=== PATIENT | female | born 1940 | race Caucasian/White ===

== ENCOUNTER 2016-10-17 04:27 | Emergency (ER) | payer MEDICARE, OTHER ==
--- NOTE | 2016-10-17 05:12 | EDM.PDOC ---
ED HISTORY OF PRESENT ILLNESS - General Chief Complaint: Chest Pain Stated Complaint: FEELING ILL,UPPER ABDOMINAL DISCOMFORT Time Seen by Provider: 10/17/16 05:07 Source of Information: Reports: Patient History Limitations: Reports: No limitations - History of Present Illness INITIAL COMMENTS - FREE TEXT/NARRATIVE: HISTORY AND PHYSICAL: History of present illness: [76-year-old female with a history of asbestosis and elevated cholesterol with which he is noncompliant, no prior cardiac disease or workup, now presents to the emergency department complaining of back pain with cough. The patient states she awoke early this morning with painful cough similar to previous episodes of pneumonia. No nausea vomiting or sweating. Patient is at her baseline of shortness of air. She's never been a smoker has never had high blood pressure , never told she is diabetic. Patient denies any family history of coronary artery disease. She states she's had no recent cardiac workup including stress test or cardiac catheterization. 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 Patient is asymptomatic without cough. She denies pain or shortness of breath beyond her baseline She takes a medication for anxiety twice a day however she has not taken it yet today. no fevers chills sweats or shaking chills. Patient states she has been very active including strenuous vacuuming yesterday with no chest pain or shortness of breath beyond her baseline. Review of systems: As per history of present illness and below otherwise all systems reviewed and negative. Past medical history: As per history of present illness and as reviewed below otherwise noncontributory. Surgical history: As per history of present illness and as reviewed below otherwise noncontributory. Social history: No reported history of drug or alcohol abuse. Family history: As per history of present illness and as reviewed below otherwise noncontributory. Physical exam: HEENT: Atraumatic, normocephalic, pupils reactive, negative for conjunctival pallor or scleral icterus, mucous membranes moist, throat clear, neck supple, nontender, trachea midline. Lungs: Clear to auscultation, breath sounds equal bilaterally, chest nontender. No Bony or soft tissue tenderness. No crepitus or subcutaneous air. Heart: S1S2, regular, negative for clicks, rubs, or JVD. Abdomen: Soft, nondistended, nontender. Negative for masses or hepatosplenomegaly. Negative for costovertebral tenderness. Pelvis: Stable nontender. Genitourinary: Deferred. Rectal: Deferred. Extremities: Atraumatic, negative for cords or calf pain. Neurovascular unremarkable. Neuro: Awake, alert, oriented. Cranial nerves grossly unremarkable. Cerebellum unremarkable. Motor and sensory unremarkable throughout. Exam nonfocal. Diagnostics: [Chest x-ray cannot radiographically rule out early infiltrate rul EKG normal sinus rhythm at 93 occasional PVC and P SVC , no STEMI Therapeutics: zithromax Impression: Pneumonia, chest wall pain Plan: [Signs and symptoms consistent with chest pain possibly secondary to early pneumonia of which patient is suspicious. elderly patient with cardiac risk factors of age, high cholesterol only. Patient has had no recent cardiac workup., However presentation today not consistent with acute coronary syndrome. Patient wants to go home and is aware to followup with her primary care for reevaluation and also for referral for outpatient stress testing. She and her both agree with outpatient followup and will return immediately for new severe or worsening symptoms and strict return precautions given. Definitive disposition and diagnosis as appropriate pending reevaluation and review of above. - Related Data Allergies/ADRs: Allergies Allergy/AdvReac Type Severity Reaction Status Date / Time morphine Allergy Hives Verified 10/17/16 04:46 Home Meds: Home Meds Acetaminophen [Tylenol] 975 mg PO DAILY PRN 01/25/14 [History] LORazepam [Ativan] 0.5 mg PO BID PRN 01/25/14 [History] Montelukast [Singulair] 10 mg PO BEDTIME 01/25/14 [History] Vit D3/Folic Acid/B2/B6/B12 [Folgard Tablet] 400 units PO BID 01/25/14 [History] Acetaminophen [Tylenol Extra Strength] 1 tab PO BEDTIME 02/04/14 [History] Albuterol/Ipratropium [Combivent Respimat] 1 puff INH BID 02/04/14 [History] Ascorbic Acid [Vitamin C] 500 mg PO BID 02/04/14 [History] Fluticasone/Salmeterol [Advair 500-50] 1 puff IH BID 02/04/14 [History] Albuterol Sulfate [Proair Hfa] 1 - 2 puff INH ASDIRECTED PRN 10/17/16 [History] Azithromycin [Zithromax] 250 mg PO DAILY #6 tablet 10/17/16 [Rx] Dextromethorphan/guaiFENesin [Mucinex DM ER 600-30 MG] 1 tab PO BID PRN #20 tab.er 10/17/16 [Rx] Past Medical History HEENT History: Reports: Impaired vision Respiratory History: Reports: SOB, Other (see below) Other Respiratory History: 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 ruptured ovary Psychiatric History: Reports: Anxiety - Infectious Disease History Infectious Disease History: Reports: Chicken pox - Past Surgical History GI Surgical History: Reports: Appendectomy Female Surgical History: Reports: section, Hysterectomy Social & Family History - Family History Family Medical History: Noncontributory - Tobacco Use Smoking Status *Q: Former Smoker Years of Tobacco use: 42 Used Tobacco, but Quit: Yes Month Tobacco Last Used: 2000 Second Hand Smoke Exposure: No - Alcohol Use Days Per Week of Alcohol Use: 0 Number of Drinks Per Day: 0 Total Drinks Per Week: 0 - Recreational Drug Use Recreational Drug Use: No Drug Use in Last 12 Months: No ED ROS GENERAL - Review of Systems Review Of Systems: See Below (History of present illness) ED EXAM, GENERAL - Physical Exam Exam: See Below (History of present illness) Course - Vital Signs Last Recorded V/S: Last Vital Signs Temp 37.1 C 10/17/16 05:46 Pulse 67 10/17/16 05:46 Resp 18 10/17/16 05:46 BP 152/67 H 10/17/16 05:46 Pulse Ox 95 10/17/16 05:46 - Orders/Labs/Meds Orders: Active Orders 24 hr Category Date Time Status EKG Documentation Completion [RC] STAT Care 10/17/16 04:37 Active Chest 1V Frontal [CR] Stat Exams 10/17/16 04:38 Taken Labs: Laboratory Tests 10/17/16 10/17/16 10/17/16 Range/Units 04:40 04:40 04:40 WBC 9.77 (4.0-11.0) K/uL RBC 4.00 L (4.30-5.90) M/uL Hgb 13.3 (12.0-16.0) g/dL Hct 40.8 (36.0-46.0) % MCV 102.0 H (80.0-98.0) fL MCH 33.3 H (27.0-32.0) pg MCHC 32.6 (31.0-37.0) g/dL RDW Std Deviation 49.9 (28.0-62.0) fl RDW Coeff of Cornell 13 (11.0-15.0) % Plt Count 238 (150-400) K/uL MPV 10.20 (7.40-12.00) fL Neut % (Auto) 74.1 (48.0-80.0) % Lymph % (Auto) 15.6 L (16.0-40.0) % [place] % (Auto) 9.4 (0.0-15.0) % Eos % (Auto) 0.5 (0.0-7.0) % Baso % (Auto) 0.4 (0.0-1.5) % Neut # (Auto) 7.2 H (1.4-5.7) K/uL Lymph # (Auto) 1.5 (0.6-2.4) K/uL [place] # (Auto) 0.9 H (0.0-0.8) K/uL Eos # (Auto) 0.1 (0.0-0.7) K/uL Baso # (Auto) 0.0 (0.0-0.1) K/uL Nucleated RBC % 0.0 /100WBC Nucleated RBCs # 0 K/uL Sodium 139 (136-146) mmol/L Potassium 4.3 (3.5-5.1) mmol/L Chloride 104 (98-110) mmol/L Carbon Dioxide 24 (21-31) mmol/L BUN 15 (6.0-23.0) mg/dL Creatinine 0.8 (0.6-1.5) mg/dL Est Cr Clr Drug Dosing 42.97 mL/min Estimated GFR (MDRD) > 60.0 ml/min Glucose 118 H (60-110) mg/dL Calcium 9.9 (8.8-10.8) mg/dL Total Bilirubin 0.9 (0.1-1.5) mg/dL AST 20 (5-40) IU/L ALT 20 (8-54) IU/L Alkaline Phosphatase 74 (40-150) Creatine Kinase 73 (9-236) IU/L Troponin I < 0.10 (0.0-0.29) NG/ML Total Protein 7.0 (6.0-8.0) g/dL Albumin 3.7 (3.4-4.8) g/dL Globulin 3.3 (2.0-3.5) g/dL Albumin/Globulin Ratio 1.1 L (1.3-2.8) Urine Color Urine Appearance Urine pH (5.0-8.0) Ur Specific Ruth (1.001-1.035) Urine Protein (NEGATIVE) mg/dL Urine Glucose (UA) (NEGATIVE) mg/dL Urine Ketones (NEGATIVE) mg/dL Urine Occult Blood (NEGATIVE) Urine Nitrite (NEGATIVE) Urine Bilirubin (NEGATIVE) Urine Urobilinogen (<2.0) EU/dL Ur Leukocyte Esterase (NEGATIVE) Urine RBC (0-2/HPF) Urine WBC (0-5/HPF) Ur Epithelial Cells (NONE-FEW) Amorphous Sediment (NEGATIVE) Urine Bacteria (NEGATIVE) 10/17/16 Range/Units 05:10 WBC (4.0-11.0) K/uL RBC (4.30-5.90) M/uL Hgb (12.0-16.0) g/dL Hct (36.0-46.0) % MCV (80.0-98.0) fL MCH (27.0-32.0) pg MCHC (31.0-37.0) g/dL RDW Std Deviation (28.0-62.0) fl RDW Coeff of Cornell (11.0-15.0) % Plt Count (150-400) K/uL MPV (7.40-12.00) fL Neut % (Auto) (48.0-80.0) % Lymph % (Auto) (16.0-40.0) % [place] % (Auto) (0.0-15.0) % Eos % (Auto) (0.0-7.0) % Baso % (Auto) (0.0-1.5) % Neut # (Auto) (1.4-5.7) K/uL Lymph # (Auto) (0.6-2.4) K/uL [place] # (Auto) (0.0-0.8) K/uL Eos # (Auto) (0.0-0.7) K/uL Baso # (Auto) (0.0-0.1) K/uL Nucleated RBC % /100WBC Nucleated RBCs # K/uL Sodium (136-146) mmol/L Potassium (3.5-5.1) mmol/L Chloride (98-110) mmol/L Carbon Dioxide (21-31) mmol/L BUN (6.0-23.0) mg/dL Creatinine (0.6-1.5) mg/dL Est Cr Clr Drug Dosing mL/min Estimated GFR (MDRD) ml/min Glucose (60-110) mg/dL Calcium (8.8-10.8) mg/dL Total Bilirubin (0.1-1.5) mg/dL AST (5-40) IU/L ALT (8-54) IU/L Alkaline Phosphatase (40-150) Creatine Kinase (9-236) IU/L Troponin I (0.0-0.29) NG/ML Total Protein (6.0-8.0) g/dL Albumin (3.4-4.8) g/dL Globulin (2.0-3.5) g/dL Albumin/Globulin Ratio (1.3-2.8) Urine Color YELLOW Urine Appearance SLT CLOUDY Urine pH 7.5 (5.0-8.0) Ur Specific Ruth 1.010 (1.001-1.035) Urine Protein NEGATIVE (NEGATIVE) mg/dL Urine Glucose (UA) NEGATIVE (NEGATIVE) mg/dL Urine Ketones NEGATIVE (NEGATIVE) mg/dL Urine Occult Blood NEGATIVE (NEGATIVE) Urine Nitrite NEGATIVE (NEGATIVE) Urine Bilirubin NEGATIVE (NEGATIVE) Urine Urobilinogen 0.2 (<2.0) EU/dL Ur Leukocyte Esterase NEGATIVE (NEGATIVE) Urine RBC 0-2 (0-2/HPF) Urine WBC 0-1 (0-5/HPF) Ur Epithelial Cells OCCASIONAL (NONE-FEW) Amorphous Sediment FEW (NEGATIVE) Urine Bacteria FEW (NEGATIVE) Meds: Medications Discontinued Medications Generic Name Dose Route Start Last Admin Trade Name Freq PRN Reason Stop Dose Admin Azithromycin 500 mg 10/17/16 05:49 Zithromax PO 10/17/16 05:50 ONETIME ONE Departure - Departure Time of Disposition: 06:00 Disposition: Home, Self-Care 01 Condition: good Clinical Impression: Pneumonia, Chest wall pain Clinical Impression: (Ruled Out): Acute coronary syndrome, Acute myocardial infarction, Pneumothorax , Fracture of rib Prescriptions: Azithromycin [Zithromax] 250 mg PO DAILY #6 tablet Dextromethorphan/guaiFENesin [Mucinex DM ER 600-30 MG] 1 tab PO BID PRN #20 tab.er PRN Reason: Congestion Instructions: Nonspecific Chest Pain, [id number], Community-Acquired Pneumonia, Adult, [id number] Referrals: PCP,None [Primary Care Provider] - Forms: ED Department Discharge Additional Instructions: As you suspected, your chest x-ray indicates that you have a mild pneumonia. Finish Zithromax as prescribed and use Mucinex DM as needed for cough. Guaifenesin in the Mucinex we'll also helps break up any mucus in your lungs. Rest and all of with your DrKen tomorrow for reevaluation and further workup and treatment as needed. While it is clear that you have pneumonia today is worthwhile to followup with your Dr. to discuss outpatient stress testing for your own peace of mind to rule out the possibility of evolving heart disease. Return immediately for new severe or worsening symptoms
[2016-10-17 05:13] LABS: CHLORIDE,CL 104 mmol/L (98-110); SODIUM,NA 139 mmol/L (136-146)
[2016-10-17] MEDS ORDERED: Azithromycin 250 MG Tab PO ONE (05:49)
[2016-10-17 05:52] VITALS: BP 152/67
--- NOTE | 2016-10-17 14:17 | CR ---
EXAM DATE: 10/17/16 PATIENT'S AGE: 76 Patient: CHANDNI POTTER Facility: [place], [place] Site . Site : [id number] Study: XRay Chest [id number]/1/2017 5:01:56 AM Ordering Physician: Doctor Ramírez Final Report: Indication: Chest pain, history of asbestos exposure Technique: Chest 1 view. Comparison: February 21, 2014 Findings: Cardiovascular and mediastinum: Heart size and vasculature are normal in caliber and appearance. Mediastinum is within normal limits. Lungs and pleural space: New patchy opacity in the right upper lobe. No sign of pleural effusion. No pneumothorax. Bones and soft tissues: No significant findings. Impression: New patchy opacity in the right upper lobe concerning for infection. Recommend followup radiograph to assure complete resolution. Dictated by Betsy Talbot MD @ Oct 17 2016 5:14AM (Electronic Signature) Report Signed by Proxy. MAYNOR
== END 2016-10-17 06:10 | disposition home or self-care (01) ==
LOC: MW.ED 04:27
DX: J18.9 Pneumonia, unspecified organism (principal); R07.89 Other chest pain; M54.9 Dorsalgia, unspecified; F41.9 Anxiety disorder, unspecified; Z90.49 Acquired absence of other specified parts of digestive tract; Z90.710 Acquired absence of both cervix and uterus; Z87.891 Personal history of nicotine dependence; Z79.899 Other long term (current) drug therapy; Z88.5 Allergy status to narcotic agent
CPT/HCPCS: 71010; 80053; 81001; 82550; 84484; 85025; 99285; A9270; 99284

== ENCOUNTER 2018-07-16 13:38 | Emergency (ER) | payer MEDICARE, OTHER ==
[2018-07-16 14:02] VITALS: BP 153/78
--- NOTE | 2018-07-16 14:10 | EDM.PDOC ---
ED HPI GENERAL MEDICAL PROBLEM - General Chief Complaint: Head Injury Stated Complaint: FELL ON ICE Time Seen by Provider: 07/16/18 14:06 Source of Information: Reports: Patient History Limitations: Reports: No Limitations - History of Present Illness INITIAL COMMENTS - FREE TEXT/NARRATIVE: HISTORY AND PHYSICAL: History of present illness: She is an 78-year-old female presents to the ED after a fall. She states she had an appointment today at [facility] and she is going inside she stepped up on the curb which was icy and slipped landing on her right knee and falling to her right side and hitting the right side of her head. She states it bent glasses and she did sustain cuts to the face from the glasses. She denies any loss of consciousness and she is not on anticoagulation. She denies any pain at this time, headache, dizziness, visual disturbances, vomiting. She states she walked in to her appointment and was told she may need to have stitches and was told to come to the ED. Review of systems: As per history of present illness and below otherwise all systems reviewed and negative. Past medical history: As per history of present illness and as reviewed below otherwise noncontributory. Surgical history: As per history of present illness and as reviewed below otherwise noncontributory. Social history: No reported history of drug or alcohol abuse. Family history: As per history of present illness and as reviewed below otherwise noncontributory. Physical exam: General: Patient sitting comfortably in no acute distress and nontoxic appearing HEENT: 1.5cm superficial laceration to the right lateral brow, abrasion to the right temporal area, and a 0.5cm laceration to the left lateral bridge of the nose. No bony step offs or crepitus to palpation of the facial bones. Nares are patent bilaterally without septal deviation. normocephalic, pupils reactive, negative for conjunctival pallor or scleral icterus, mucous membranes moist, throat clear, neck supple, nontender, trachea midline. No meningeal signs. Lungs: Clear to auscultation, breath sounds equal bilaterally, chest nontender. Heart: S1S2, regular, negative for clicks, rubs, or overt murmur. Abdomen: Soft, nondistended, nontender. Negative for masses or hepatosplenomegaly. Negative for costovertebral tenderness. Pelvis: Stable nontender. Genitourinary: Deferred. Rectal: Deferred. Extremities: Small abrasion to the right anterior knee. No tenderness to palpation. Patient ambulating normally in the room without pain. negative for cords or calf pain. Neurovascular unremarkable. Neuro: Awake, alert, oriented. Cranial nerves II through XII unremarkable. Cerebellum unremarkable. Motor and sensory unremarkable throughout. Exam nonfocal. Notes: Diagnostics: Declines imaging Therapeutics: Tdap dermabond Prescriptions: None Impression: Fall, head injury, knee injury, laceration Plan: 1. Keep the area clean and dry as instructed 2. Follow up with primary care provider 3. Return to ED as needed as discussed Definitive disposition and diagnosis as appropriate pending reevaluation and review of above. - Related Data Allergies Allergy/AdvReac Type Severity Reaction Status Date / Time morphine Allergy Hives Verified 07/16/18 13:58 Home Meds: Home Meds Acetaminophen [Tylenol] 975 mg PO DAILY PRN 01/25/14 [History] LORazepam [Ativan] 0.5 mg PO BID PRN 01/25/14 [History] Montelukast [Singulair] 10 mg PO BEDTIME 01/25/14 [History] Vit D3/Folic Acid/B2/B6/B12 [Folgard Tablet] 400 units PO BID 01/25/14 [History] Acetaminophen [Tylenol Extra Strength] 1 tab PO BEDTIME 02/04/14 [History] Albuterol/Ipratropium [Combivent Respimat] 1 puff INH BID 02/04/14 [History] Ascorbic Acid [Vitamin C] 500 mg PO BID 02/04/14 [History] Fluticasone/Salmeterol [Advair 500-50] 1 puff IH BID 02/04/14 [History] Albuterol Sulfate [Proair Hfa] 1 - 2 puff INH ASDIRECTED PRN 10/17/16 [History] Dextromethorphan/guaiFENesin [Mucinex DM ER 600-30 MG] 1 tab PO BID PRN #20 tab.er 10/17/16 [Rx] Past Medical History HEENT History: Reports: Impaired Vision Cardiovascular History: Reports: None Respiratory History: Reports: SOB, Other (See Below) Other Respiratory History: asbestosis Gastrointestinal History: Reports: None Genitourinary History: Reports: None 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 ruptured ovary Musculoskeletal History: Reports: None Neurological History: Reports: None Psychiatric History: Reports: Anxiety Endocrine/Metabolic History: Reports: None Hematologic History: Reports: None Immunologic History: Reports: None Oncologic (Cancer) History: Reports: None Dermatologic History: Reports: None - Infectious Disease History Infectious Disease History: Reports: Chicken Pox - Past Surgical History Head Surgeries/Procedures: Reports: None HEENT Surgical History: Reports: None Cardiovascular Surgical History: Reports: None Respiratory Surgical History: Reports: None GI Surgical History: Reports: Appendectomy Female Surgical History: Reports: Section, Hysterectomy Endocrine Surgical History: Reports: None Neurological Surgical History: Reports: None Musculoskeletal Surgical History: Reports: None Oncologic Surgical History: Reports: None Dermatological Surgical History: Reports: None Social & Family History - Family History Family Medical History: Noncontributory - Tobacco Use Smoking Status *Q: Never Smoker Second Hand Smoke Exposure: No - Caffeine Use Caffeine Use: Reports: None - Recreational Drug Use Recreational Drug Use: No ED ROS GENERAL - Review of Systems Review Of Systems: ROS reveals no pertinent complaints other than HPI. ED EXAM, HEAD INJURY - Physical Exam Exam: See Below (see dictation) Course - Vital Signs Last Recorded V/S: Last Vital Signs Temp 97.4 F 07/16/18 14:00 Pulse 88 07/16/18 14:00 Resp 18 07/16/18 14:00 BP 153/78 H 07/16/18 14:00 Pulse Ox 95 07/16/18 14:00 - Orders/Labs/Meds Orders: Active Orders 24 hr Category Date Time Status Vaccines to be Administered [RC] PER UNIT ROUTINE Care 07/16/18 14:25 Active Meds: Medications Discontinued Medications Generic Name Dose Route Start Last Admin Trade Name Freq PRN Reason Stop Dose Admin Diphtheria/Tetanus/Acell Pertussis 0.5 ml 07/16/18 14:24 07/16/18 14:34 Adacel IM 07/16/18 14:25 0.5 ml .ONCE ONE Administration Octyl Cyanoacrylate 1 applic 07/16/18 14:12 07/16/18 14:18 Dermabond Advance TOP 07/16/18 14:13 1 applic ONETIME ONE Administration Departure - Departure Time of Disposition: 14:42 Disposition: Home, Self-Care 01 Condition: Good Clinical Impression: Head injury, Knee injury, Laceration, Fall from slipping on ice - Discharge Information Referrals: PCP,Unknown [Primary Care Provider] - Forms: ED Department Discharge Additional Instructions: The following information is given to patients seen in the emergency department who are being discharged to home. This information is to outline your options for follow-up care. We provide all patients seen in our emergency department with a follow-up referral. The need for follow-up, as well as the timing and circumstances, are variable depending upon the specifics of your emergency department visit. If you don't have a primary care physician on staff, we will provide you with a referral. We always advise you to contact your personal physician following an emergency department visit to inform them of the circumstance of the visit and for follow-up with them and/or the need for any referrals to a consulting specialist. The emergency department will also refer you to a specialist when appropriate. This referral assures that you have the opportunity for follow-up care with a specialist. All of these measure are taken in an effort to provide you with optimal care, which includes your follow-up. Under all circumstances we always encourage you to contact your private physician who remains a resource for coordinating your care. When calling for follow-up care, please make the office aware that this follow-up is from your recent emergency room visit. If for any reason you are refused follow-up, please contact the [facility] Emergency Department at and asked to speak to the emergency department charge nurse. [address] [address] 1. Keep the area clean and dry as instructed 2. Follow up with primary care provider 3. Return to ED as needed as discussed - My Orders Last 24 Hours: My Active Orders 07/16/18 14:25 Vaccines to be Administered [RC] PER UNIT ROUTINE - Assessment/Plan Last 24 Hours: My Active Orders 07/16/18 14:25 Vaccines to be Administered [RC] PER UNIT ROUTINE
[2018-07-16] MEDS ORDERED: Octyl 2-Cyanoacrylate 1 Tube TOP ONE (14:12)
[2018-07-16] MEDS ORDERED: Diphtheria,Pertussis(Acell),Tetanus Vaccine 0.5 ML Syringe IM ONE (14:24)
== END 2018-07-16 14:50 | disposition home or self-care (01) ==
LOC: MW.ED 13:38
DX: S01.81XA Laceration without foreign body of other part of head, initial encounter (principal); S01.21XA Laceration without foreign body of nose, initial encounter; S09.90XA Unspecified injury of head, initial encounter; S80.211A Abrasion, right knee, initial encounter; Z23 Encounter for immunization; F41.9 Anxiety disorder, unspecified; Z88.5 Allergy status to narcotic agent; Z79.899 Other long term (current) drug therapy; W00.0XXA Fall on same level due to ice and snow, initial encounter
CPT/HCPCS: 12011; 90471; 90715; 99283; A9270

== ENCOUNTER 2020-12-05 08:33 | Emergency (ER) | payer MEDICARE, OTHER ==
--- NOTE | 2020-12-05 08:51 | PCM.EKG ---
#1 Interpretation EKG Date: 12/05/20 Time: 08:33 Rhythm: NSR Rate (Beats/Min): 91 [place]: Normal P-Wave: Present QRS: Normal ST-T: Normal (Isolated ST depression lead II) QT: Normal Comparison: No Change (02/21/14) EKG Interpretation Comments: Sinus Rhythm
[2020-12-05 09:21] LABS: BLOOD UREA NITROGEN,BUN 21 mg/dL (7.0-18.0); CARBON DIOXIDE,CO2 28.5 mmol/L (21.0-32.0); CHLORIDE,CL 99 mmol/L (98-107); GLUCOSE RANDOM 92 mg/dL (74-106); POTASSIUM,K 4.9 mmol/L (3.5-5.1); SODIUM,NA 135 mmol/L (136-145)
--- NOTE | 2020-12-05 09:28 | EDM.PDOC ---
ED HPI GENERAL MEDICAL PROBLEM - General Chief Complaint: Neuro Symptoms/Deficits Stated Complaint: possible stroke Time Seen by Provider: 12/05/20 08:42 - History of Present Illness INITIAL COMMENTS - FREE TEXT/NARRATIVE: CHIEF COMPLAINT(S): Left finger numbness HISTORY OF PRESENT ILLNESS: This is a 80-year-old woman with a past medical history of asbestosis who comes to the emergency department with a chief complaint of left finger numbness. Patient states that starting approximately 3 hours prior to arrival she noticed that all the fingers on her left hand were numb. She denies any headache, blurry vision but states that her vision was "funny." She cannot describe the sensation but denies any diplopia. She states that the numbness has not gone away in her fingers. She denies any decreased strength, trouble talking. She states that her balance felt off but it seems similar to her normal balance problems at baseline. She did not use a walker or cane. She denies any chest pain, shortness of breath, abdominal pain, nausea or vomiting. She denies any dysuria, hematuria, vaginal bleeding. She denies any fever chills or recent illnesses. She denies any history of CAD, CHF, prior history of TIA or CVA. She denies any history of hyperlipidemia or hypertension. REVIEW OF SYSTEMS: Constitutional: Denies fever, chills. Eyes: Denies eye pain Ears, Nose, Mouth, & Throat: Denies earache Cardiovascular: Denies chest pain Respiratory: Denies shortness of breath Gastrointestinal: Denies Nausea, vomiting, diarrhea, hematochezia. Genitourinary: Denies hematuria Skin:Denies a rash MSK: Denies joint pain Neurological: Positive for left fingers numb. Denies blurred vision, diplopia, weakness Psychiatric: Denies depression PAST MEDICAL HISTORY: As per history of present illness and as reviewed below otherwise noncontributory. SURGICAL HISTORY: As per history of present illness and as reviewed below otherwise noncontributory. SOCIAL HISTORY: As per history of present illness and as reviewed below otherwise noncontributory. FAMILY HISTORY: As per history of present illness and as reviewed below otherwise noncontributory. EXAMINATION OF ORGAN SYSTEMS/BODY AREAS: Constitutional: Blood pressure was 148/69, heart rate 88, respiratory rate 17 with an oxygen saturation of 96% on room air. Temperature 36.9 General: Overall well-appearing woman who is in no acute distress. Psychiatric: Appears mildly anxious but is cooperative Eyes: No scleral icterus or conjunctival erythema pupils are equal round and reactive to light. Extraocular movements intact. No nystagmus noted. ENMT: Moist mucous membranes. No pharyngeal erythema tongue protrudes midline. Cardiovascular: Regular, rate, and rhythm. No gallops, murmurs, or rubs. Bilateral upper extremity pulses symmetric and intact. No peripheral edema. No JVD. Respiratory: Lungs clear to auscultation bilaterally. No wheezes, rales, or rhonchi. Gastrointestinal: Soft, non-tender, non-distended. Normoactive bowel sounds Genitourinary: No suprapubic tenderness Musculoskeletal: Normal range of motion. Skin: No lesions or abrasions. Neurological: AOx4. Facies is symmetric, tongue protrudes midline, otherwise other cranial nerves grossly intact. Stregth 5/5 in bilateral upper and lower extremity. Sensation is intact with pinprick bilaterally in upper and lower extremity. Gait appears normal as patient walked into the emergency department. Finger to nose, heel to bird, rapid alternating movements intact. Patient's NIH equals 0 MEDICAL DECISION MAKING AND COURSE IN THE ED WITH INTERPRETATION/REVIEW OF DIAGNOSTIC STUDIES: This is a 80-year-old woman with a past medical history of asbestosis who comes to the emergency department with left fingertip numbness approximately 3 hours prior to arrival who has no decreased sensation on examination with mild hypertension and otherwise normal vital signs. The patient does have an NIH of 0. Stroke code was not called. The patient is not a candidate for TPA. I do believe this is likely secondary to a peripheral paresthesia as there was no evidence of any other abnormality on examination. However we will obtain CT head without contrast and CTA of the head and neck. We did obtain a [id number] glucose which was 118. EKG was obtained which did not reveal any acute signs of ischemia. Will obtain a cardiac work-up and basic labs. Will obtain a chest x-ray. We placed the patient on cardiac monitoring and pulse oximetry. Laboratory: CBC reveals macrocytosis with an MCV of 103.7 otherwise unremarkable. CMP reveals hyponatremia at 135, elevated BUN at 21 otherwise unremarkable. Troponin is negative. TSH and T4 are normal. The radiological images were viewed by myself along with reading the report from the radiologist. Chest x-ray does not reveal any acute cardiopulmonary process otherwise chronic findings. CT head without contrast does not reveal any acute intracranial abnormality. CTA of the head reveals a normal CT angiogram of the head without any evidence of occlusion or aneurysm. CT angiogram of the neck reveals a normal CT angiogram of the neck without any evidence of occlusion or aneurysm. Laboratory: B12 is 993, folate is 89.6 these are within normal range. The patient was ambulating in the emergency department without any difficulty and did not need any assistance. After imaging I did contact [facility] in [place] and spoke with Dr. Brasher who stated that she can follow-up with her primary care physician. I did discuss the results with the patient. At this time the patient's vitals and work-up are negative. She was amenable discharge at this time. She was given strict return precautions. She had no further questions. DISPOSITION: The patient was discharged home in stable condition. The patient will follow up with primary care physician in 2 to 3 days CONDITION: Fair PROCEDURES: None FINAL IMPRESSION(S)/DIAGNOSES: 1. Acute encounter for left finger paresthesias Terry Astorga M.D. - Related Data Allergies Allergy/AdvReac Type Severity Reaction Status Date / Time morphine Allergy Hives Verified 07/16/18 13:58 Home Meds: Home Meds LORazepam [Ativan] 0.5 mg PO BID PRN 01/25/14 [History] Vit D3/Folic Acid/B2/B6/B12 [Folgard Tablet] 400 units PO BID 01/25/14 [History] Acetaminophen [Tylenol Extra Strength] 3 tab PO ASDIRECTED 02/04/14 [History] Albuterol/Ipratropium [Combivent Respimat] 1 puff INH BID 02/04/14 [History] Ascorbic Acid [Vitamin C] 500 mg PO BID 02/04/14 [History] Fluticasone/Salmeterol [Advair 500-50] 1 puff IH BID 02/04/14 [History] Albuterol Sulfate [Proair Hfa] 1 - 2 puff INH ASDIRECTED PRN 10/17/16 [History] Hydrocortisone [Cortef] 25 mg PO ASDIRECTED 12/05/20 [History] Loratadine [Loratadine Allergy] 1 dose PO ASDIRECTED 12/05/20 [History] Meloxicam, Submicronized [Meloxicam] 5 mg PO ASDIRECTED 12/05/20 [History] Past Medical History HEENT History: Reports: Impaired Vision Cardiovascular History: Reports: None Respiratory History: Reports: SOB, Other (See Below) Other Respiratory History: asbestosis Gastrointestinal History: Reports: None Genitourinary History: Reports: None SPOT REMOVER History: Reports: Spontaneous , Other (See Below) Other SPOT REMOVER History: 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 ruptured ovary Musculoskeletal History: Reports: None Neurological History: Reports: None Psychiatric History: Reports: Anxiety Endocrine/Metabolic History: Reports: None Hematologic History: Reports: None Immunologic History: Reports: None Oncologic (Cancer) History: Reports: None Dermatologic History: Reports: None - Infectious Disease History Infectious Disease History: Reports: Chicken Pox - Past Surgical History Head Surgeries/Procedures: Reports: None HEENT Surgical History: Reports: None Cardiovascular Surgical History: Reports: None Respiratory Surgical History: Reports: None GI Surgical History: Reports: Appendectomy Female Surgical History: Reports: Section, Hysterectomy Endocrine Surgical History: Reports: None Neurological Surgical History: Reports: None Musculoskeletal Surgical History: Reports: None Oncologic Surgical History: Reports: None Dermatological Surgical History: Reports: None Social & Family History - Family History Family Medical History: No Pertinent Family History - Tobacco Use Tobacco Use Status *Q: Never Tobacco User - Caffeine Use Caffeine Use: Reports: None - Recreational Drug Use Recreational Drug Use: No ED ROS GENERAL - Review of Systems Review Of Systems: See Below ED EXAM, GENERAL - Physical Exam Exam: See Below Course - Vital Signs Last Recorded V/S: Last Vital Signs Temp 36.9 C 12/05/20 08:33 Pulse 81 12/05/20 11:55 Resp 18 12/05/20 09:23 BP 107/62 12/05/20 11:55 Pulse Ox 98 12/05/20 11:55 - Orders/Labs/Meds Labs: Laboratory Tests 12/05/20 12/05/20 12/05/20 Range/Units 08:44 08:44 08:44 WBC 8.23 (4.0-11.0) K/uL RBC 4.07 L (4.30-5.90) M/uL Hgb 13.9 (12.0-16.0) g/dL Hct 42.2 (36.0-46.0) % MCV 103.7 H (80.0-98.0) fL MCH 34.2 H (27.0-32.0) pg MCHC 32.9 (31.0-37.0) g/dL RDW Std Deviation 48.4 (28.0-62.0) fl RDW Coeff of Cornell 13 (11.0-15.0) % Plt Count 286 (150-400) K/uL MPV 10.20 (7.40-12.00) fL Neut % (Auto) 62.2 (48.0-80.0) % Lymph % (Auto) 28.2 (16.0-40.0) % Giles % (Auto) 8.6 (0.0-15.0) % Eos % (Auto) 0.6 (0.0-7.0) % Baso % (Auto) 0.4 (0.0-1.5) % Neut # (Auto) 5.1 (1.4-5.7) K/uL Lymph # (Auto) 2.3 (0.6-2.4) K/uL Giles # (Auto) 0.7 (0.0-0.8) K/uL Eos # (Auto) 0.1 (0.0-0.7) K/uL Baso # (Auto) 0.0 (0.0-0.1) K/uL Nucleated RBC % 0.0 /100WBC Nucleated RBCs # 0 K/uL Sodium 135 L (136-145) mmol/L Potassium 4.9 (3.5-5.1) mmol/L Chloride 99 (98-107) mmol/L Carbon Dioxide 28.5 (21.0-32.0) mmol/L BUN 21 H (7.0-18.0) mg/dL Creatinine 0.8 (0.6-1.0) mg/dL Est Cr Clr Drug Dosing 42.32 mL/min Estimated GFR (MDRD) > 60.0 ml/min Glucose 92 (74-106) mg/dL Calcium 9.0 (8.5-10.1) mg/dL Magnesium 2.3 (1.8-2.4) mg/dL Total Bilirubin 0.4 (0.2-1.0) mg/dL AST 19 (15-37) IU/L ALT 26 (14-63) IU/L Alkaline Phosphatase 84 (46-116) U/L Troponin I < 0.050 (0.000-0.056) ng/mL Total Protein 7.7 (6.4-8.2) g/dL Albumin 3.5 (3.4-5.0) g/dL Globulin 4.2 H (2.6-4.0) g/dL Albumin/Globulin Ratio 0.8 L (0.9-1.6) Vitamin B12 993 H (193-986) pg/mL Folate 89.60 H (8.60-58.90) ng/mL Free T4 1.00 (0.76-1.46) ng/dL TSH 3rd Generation 1.28 (0.36-3.74) uIU/mL Blood Type Antibody Screen 12/05/20 Range/Units 08:59 WBC (4.0-11.0) K/uL RBC (4.30-5.90) M/uL Hgb (12.0-16.0) g/dL Hct (36.0-46.0) % MCV (80.0-98.0) fL MCH (27.0-32.0) pg MCHC (31.0-37.0) g/dL RDW Std Deviation (28.0-62.0) fl RDW Coeff of Cornell (11.0-15.0) % Plt Count (150-400) K/uL MPV (7.40-12.00) fL Neut % (Auto) (48.0-80.0) % Lymph % (Auto) (16.0-40.0) % Giles % (Auto) (0.0-15.0) % Eos % (Auto) (0.0-7.0) % Baso % (Auto) (0.0-1.5) % Neut # (Auto) (1.4-5.7) K/uL Lymph # (Auto) (0.6-2.4) K/uL Giles # (Auto) (0.0-0.8) K/uL Eos # (Auto) (0.0-0.7) K/uL Baso # (Auto) (0.0-0.1) K/uL Nucleated RBC % /100WBC Nucleated RBCs # K/uL Sodium (136-145) mmol/L Potassium (3.5-5.1) mmol/L Chloride (98-107) mmol/L Carbon Dioxide (21.0-32.0) mmol/L BUN (7.0-18.0) mg/dL Creatinine (0.6-1.0) mg/dL Est Cr Clr Drug Dosing mL/min Estimated GFR (MDRD) ml/min Glucose (74-106) mg/dL Calcium (8.5-10.1) mg/dL Magnesium (1.8-2.4) mg/dL Total Bilirubin (0.2-1.0) mg/dL AST (15-37) IU/L ALT (14-63) IU/L Alkaline Phosphatase (46-116) U/L Troponin I (0.000-0.056) ng/mL Total Protein (6.4-8.2) g/dL Albumin (3.4-5.0) g/dL Globulin (2.6-4.0) g/dL Albumin/Globulin Ratio (0.9-1.6) Vitamin B12 (193-986) pg/mL Folate (8.60-58.90) ng/mL Free T4 (0.76-1.46) ng/dL TSH 3rd Generation (0.36-3.74) uIU/mL Blood Type O POSITIVE Antibody Screen NEGATIVE Meds: Medications Discontinued Medications Generic Name Dose Route Start Last Admin Trade Name Bernardq PRN Reason Stop Dose Admin Iopamidol 100 ml 12/05/20 09:55 12/05/20 09:56 Iopamidol 755 Mg/Ml 500 Ml Multipack Bottle IVPUSH 12/05/20 09:56 100 ml ONETIME ONE Administration Departure - Departure Time of Disposition: 11:56 Disposition: Home, Self-Care 01 Condition: Fair Clinical Impression: Paresthesias in left hand - Discharge Information *PRESCRIPTION DRUG MONITORING PROGRAM REVIEWED*: No *COPY OF PRESCRIPTION DRUG MONITORING REPORT IN PATIENT BEATRIZ: No Instructions: Paresthesia, [id number] Referrals: PCP,None [Primary Care Provider] - Forms: ED Department Discharge Additional Instructions: You were evaluated today on an emergent basis. At this time all of your lab work was normal. The rhythm strip of your heart was also normal and the CAT scans of your brain did not reveal any abnormality. I do believe the symptoms you are experiencing in your left hand are likely due to possibly your osteoarthritis and what we call peripheral paresthesia. This is not life- threatening. I do recommend that you follow-up with your primary care physician within 3 to 5 days. If you have any worsening of your symptoms such as trouble speaking, trouble walking, or your arms or legs on one side are weak or numb I would like you to return to the emergency department. [facility] [address], [place] [address] [facility] [address] [place] [id number] The patient is informed of any results of their evaluation and diagnostic workup and all questions are answered. They are given discharge instructions and return precautions. The patient is stable for discharge. The patient states they understand and agree with the plan and that they will return if their symptoms get worse or if they have any new concerns. The following information is given to patients seen in the emergency department who are being discharged to home. This information is to outline your options for follow-up care. We provide all patients seen in our emergency department with a follow-up referral. The need for follow-up, as well as the timing and circumstances, are variable depending upon the specifics of your emergency department visit. If you don't have a primary care physician on staff, we will provide you with a referral. We always advise you to contact your personal physician following an emergency department visit to inform them of the circumstance of the visit and for follow-up with them and/or the need for any referrals to a consulting specialist. The emergency department will also refer you to a specialist when appropriate. This referral assures that you have the opportunity for follow-up care with a specialist. All of these measure are taken in an effort to provide you with optimal care, which includes your follow-up. Under all circumstances we always encourage you to contact your private physician who remains a resource for coordinating your care. When calling for follow-up care, please make the office aware that this follow-up is from your recent emergency room visit. If for any reason you are refused follow-up, please contact the [facility] at and asked to speak to the emergency department charge nurse. Sepsis Event Note (ED) - Evaluation Sepsis Screening Result: No Definite Risk - Focused Exam Vital Signs: Vital Signs Temp Pulse Resp BP Pulse Ox 12/05/20 11:55 81 107/62 98 12/05/20 09:23 79 18 131/59 L 96 12/05/20 08:33 36.9 C 88 17 148/69 H 96
--- NOTE | 2020-12-05 09:29 | CR ---
INDICATION: Shortness of breath. TECHNIQUE: AP portable chest x-ray. COMPARISON: Chest x-ray 10/17/2016. FINDINGS: The calcified pleural plaques and ground-glass nodular opacity in the right lung described on the recent CT report cannot be visualized on this film. Please see CT chest report 09/03/2020. This exam is not available for comparison. Heart size normal. Moderate aortic calcification. Mild thoracolumbar scoliosis. Mild scarring and atelectasis in the left lung base. Fine interstitial prominence in the lungs could be fibrotic. No focal dense infiltrate or consolidation in either lung. Remainder negative. Dictated by Thony Tomlinson MD @ 12/05/2020 9:27:[address] Thony Tomlinson @ Dec 05 2020 9:27AM
[2020-12-05] MEDS ORDERED: Iopamidol 755 MG/ML 500 ML Multipack Bottle IVPUSH ONE (09:55)
--- NOTE | 2020-12-05 10:08 | CT ---
INDICATION: Pt w/left hand numbness this a.m. No hx of stroke. TECHNIQUE: CT of the head without contrast. Coronal and sagittal reformats. Bone and soft tissue algorithms. COMPARISON: No prior studies available for comparison at this institution. FINDINGS: No acute intracranial hemorrhage or extra-axial collection. No evidence of acute cortical infarction. No mass effect or midline shift. Mild generalized cerebral/cerebellar parenchymal volume loss. Mild regions of decreased attenuation within the periventricular and subcortical white matter of both cerebral hemispheres most likely reflects chronic microvascular ischemic disease and age related change in this patient. Vascular calcifications within the carotid siphons. Orbital contents are normal. No calvarial fractures. No lytic or sclerotic osseous lesions within the calvarium or skull base. Scalp and other imaged soft tissue structures are normal. Mastoid air cells are clear. IMPRESSION: No acute intracranial abnormality. Please note that all CT scans at this facility use dose modulation, iterative reconstruction, and/or weight-based dosing when appropriate to reduce radiation dose to as low as reasonably achievable. Dictated by Candido Durbin MD @ 12/05/2020 10:08:[address] Candido Durbin @ Dec 05 2020 10:08AM
--- NOTE | 2020-12-05 10:12 | CT ---
DATE: 12/05/2020 CLINICAL HISTORY: Patient with left hand numbness. TECHNIQUE: Standard helical CT image acquisition through the head and neck was performed after intravenous contrast bolus enhancement. Multiplanar reconstructed images were performed and interpreted. COMPARISON: CT same day. FINDINGS: The origins of the great vessels from the aortic arch were not imaged. The origin of the right vertebral artery is patent. The origin of the left vertebral artery is patent. The common carotid arteries are patent There is no stenosis at the origin of the right internal carotid artery. There is plaque without stenosis at the origin of the left internal carotid artery. The rest of the cervical segments of the internal carotid arteries are patent up to their intracranial segments. The intracranial segments of the internal carotid arteries are patent. The vertebral arteries are codominant. The cervical segments of the vertebral arteries are patent. The intracranial segments of the vertebral arteries are patent. The middle cerebral arteries are normal without aneurysm or proximal occlusion identified. The anterior cerebral arteries are normal without aneurysm or proximal occlusion identified. The anterior communicating artery is well visualized and appears normal. The basilar artery is normal without aneurysm or occlusion. The posterior cerebral arteries are normal without aneurysm or proximal occlusion. There is normal opacification of major intracranial venous structures. The visualized lung apices are unremarkable The thyroid gland is unremarkable. The soft tissues of the neck are unremarkable. There are degenerative changes in the cervical spine. IMPRESSION: Normal CT angiogram of the head and neck. Please note that all CT scans at this facility use dose modulation, iterative reconstruction, and/or weight-based dosing when appropriate to reduce radiation dose to as low as reasonably achievable. Dictated by Oscar Mckoy MD @ 12/05/2020 11:50:[address] Oscar Mckoy @ Dec 05 2020 11:50AM
[2020-12-05 12:10] VITALS: BP 107/62; PULSE 81
== END 2020-12-05 12:10 | disposition home or self-care (01) ==
LOC: MW.ED 08:33
DX: R20.2 Paresthesia of skin (principal); Z88.5 Allergy status to narcotic agent
CPT/HCPCS: 36415; 70450; 70496; 70498; 71045; 80053; 82607; 82746; 83735; 84439; 84443; 84484; 85025; 86850; 86900; 86901; 93005; 99284; Q9967; 99283

== ENCOUNTER 2024-01-04 13:34 | Emergency (ER) | payer MEDICARE, OTHER ==
[2024-01-04 13:50] LABS: BASOPHILS ABSOLUTE AUTO 0.05 K/uL (0.00-0.20); BASOPHILS PERCENT AUTO 0.6 % (0.0-1.0); EOSINOPHILS ABSOLUTE AUTO 0.11 K/uL (0.00-0.45); EOSINOPHILS PERCENT AUTO 1.2 % (0.0-6.0); HEMATOCRIT 37.5 % (37.0-47.0); HEMOGLOBIN 12.3 g/dL (12.0-16.0); IMMATURE GRAN ABSOLUTE AUTO 0.01 K/uL (0.00-0.05); IMMATURE GRAN PERCENT AUTO 0.1 % (0.0-0.4); LYMPHOCYTES PERCENT AUTO 34.3 % (24.0-44.0); MEAN CORPUSCULAR HEMOGLOBIN 33.9 pg (28.0-32.0); MEAN CORPUSCULAR HGB CONC 32.8 g/dL (32.0-36.0); MEAN CORPUSCULAR VOLUME 103.3 fL (83.0-99.0); MEAN PLATELET VOLUME 9.5 fL (9.4-12.3); MONOCYTES ABSOLUTE AUTO 0.79 K/uL (0.00-0.80); MONOCYTES PERCENT AUTO 8.7 % (0.0-8.0); NEUTROPHILS ABSOLUTE AUTO 4.99 K/uL (1.80-7.70); NEUTROPHILS PERCENT AUTO 55.1 % (41.0-71.0); PLATELET COUNT,PLT 315 K/uL (150-400); RED BLOOD CELL COUNT 3.63 M/uL (4.10-5.30); WHITE BLOOD CELL COUNT,WBC 9.05 K/uL (3.9-11.3)
[2024-01-04 14:13] LABS: ALBUMIN 3.3 g/dL (3.4-5.0); BILIRUBIN TOTAL 0.5 mg/dL (0.2-1.0); CALCIUM 8.7 mg/dL (8.5-10.1); CARBON DIOXIDE,CO2 24.2 mmol/L (21.0-32.0); CREATININE 0.9 mg/dL (0.6-1.0); EST CRCL DRUG DOSING (CG) 34.02 mL/min; POTASSIUM,K 4.9 mmol/L (3.5-5.1); PROTEIN TOTAL,TP 6.6 g/dL (6.4-8.2)
[2024-01-04] MEDS: Acetaminophen 500 MG Tab PO STA (14:34)
[2024-01-04] MEDS: Diphtheria,Pertussis(Acell),Tetanus Vaccine 0.5 ML Syringe IM ONE (14:35)
[2024-01-04] MEDS: Lidocaine 1% 5 ML VIAL INJECT STA (14:35)
[2024-01-04] MEDS: Sodium Chloride 0.9% 10 ML Syringe FLUSH PRN (14:37)
[2024-01-04] MEDS: Sodium Chloride 0.9% 2.5 ML Syringe FLUSH PRN (14:37)
[2024-01-04] MEDS: Ibuprofen 800 MG Tab PO STA (14:43)
[2024-01-04 16:04] VITALS: BP 121/58; PULSE 86
== END 2024-01-04 15:57 | disposition home or self-care (01) ==
LOC: MW.ED 13:34
DX: S05.41XA Penetrating wound of orbit with or without foreign body, right eye, initial encounter (principal); Z23 Encounter for immunization; Z90.49 Acquired absence of other specified parts of digestive tract; Z90.710 Acquired absence of both cervix and uterus; Z79.899 Other long term (current) drug therapy; Z88.5 Allergy status to narcotic agent; Z75.8 Other problems related to medical facilities and other health care; W01.0XXA Fall on same level from slipping, tripping and stumbling without subsequent striking against object, initial encounter; Y92.002 Bathroom of unspecified non-institutional (private) residence as the place of occurrence of the external cause
CPT/HCPCS: 12013; 36415; 70450; 71046; 72125; 73030; 80053; 84484; 85025; 90471; 90715; 93005; 99284; A9270; J3490; 93010; 99283

== ENCOUNTER 2024-04-30 12:22 | Emergency (ER) | payer MEDICARE, OTHER ==
[2024-04-30] MEDS ORDERED: Sodium Chloride 0.9% 2.5 ML Syringe FLUSH PRN (12:44)
[2024-04-30] MEDS ORDERED: Sodium Chloride 0.9% 10 ML Syringe FLUSH PRN (12:44)
[2024-04-30 13:05] LABS: BASOPHILS ABSOLUTE AUTO 0.05 K/uL (0.00-0.20); BASOPHILS PERCENT AUTO 0.5 % (0.0-1.0); EOSINOPHILS ABSOLUTE AUTO 0.05 K/uL (0.00-0.45); EOSINOPHILS PERCENT AUTO 0.5 % (0.0-6.0); HEMOGLOBIN 12.4 g/dL (12.0-16.0); IMMATURE GRAN ABSOLUTE AUTO 0.05 K/uL (0.00-0.05); IMMATURE GRAN PERCENT AUTO 0.5 % (0.0-0.4); LYMPHOCYTES ABSOLUTE AUTO 2.36 K/uL (1.00-4.80); LYMPHOCYTES PERCENT AUTO 22.2 % (24.0-44.0); MEAN CORPUSCULAR HGB CONC 33.5 g/dL (32.0-36.0); MEAN CORPUSCULAR VOLUME 101.4 fL (83.0-99.0); MONOCYTES ABSOLUTE AUTO 0.97 K/uL (0.00-0.80); MONOCYTES PERCENT AUTO 9.1 % (0.0-8.0); NEUTROPHILS ABSOLUTE AUTO 7.13 K/uL (1.80-7.70); NEUTROPHILS PERCENT AUTO 67.2 % (41.0-71.0); PLATELET COUNT,PLT 267 K/uL (150-400); RED BLOOD CELL COUNT 3.65 M/uL (4.10-5.30); WHITE BLOOD CELL COUNT,WBC 10.61 K/uL (3.9-11.3)
[2024-04-30 13:13] LABS: INR 1.01 (0.86-1.11)
[2024-04-30 13:32] LABS: A/G RATIO 0.9 (0.9-1.6); ALBUMIN 3.4 g/dL (3.4-5.0); BILIRUBIN TOTAL 0.6 mg/dL (0.2-1.0); CALCIUM 10.9 mg/dL (8.5-10.1); CARBON DIOXIDE,CO2 30.4 mmol/L (21.0-32.0); CREATININE 1.2 mg/dL (0.6-1.0); EST CRCL DRUG DOSING (CG) 26.24 mL/min; POTASSIUM,K 4.7 mmol/L (3.5-5.1); PROTEIN TOTAL,TP 7.3 g/dL (6.4-8.2)
[2024-04-30 15:40] LABS: APPEARANCE,URINE CLEAR; BILIRUBIN,URINE NEGATIVE (NEGATIVE); COLOR,URINE YELLOW; GLUCOSE,URINE NEGATIVE (NEGATIVE); KETONES,URINE NEGATIVE (NEGATIVE); LEUKOCYTE ESTERASE,URINE NEGATIVE (NEGATIVE); NITRITE,URINE NEGATIVE (NEGATIVE); OCCULT BLOOD,URINE NEGATIVE (NEGATIVE); PROTEIN,URINE NEGATIVE (NEGATIVE); UROBILINOGEN,URINE 0.2 EU/dL (<2.0)
[2024-04-30 16:08] LABS: EPITHELIAL CELLS,URINE FEW (NONE-FEW); RBC,URINE NONE SEEN (0-2/HPF); WBC,URINE 0-1 (0-5/HPF)
[2024-04-30 16:09] LABS: BACTERIA,URINE FEW (NEGATIVE); COARSE GRANULAR CASTS,URINE 0-1 (NEGATIVE); HYALINE CASTS,URINE 0-1 (0-2/LPF); MUCUS,URINE LIGHT (NONE-MOD)
[2024-04-30] MEDS: Sodium Chloride 0.9% 500 ML IV SCH (16:52)
[2024-04-30 18:03] VITALS: BP 129/77; PULSE 83
== END 2024-04-30 18:02 | disposition home or self-care (01) ==
LOC: MW.ED 12:22
DX: R55 Syncope and collapse (principal); R53.1 Weakness; E87.1 Hypo-osmolality and hyponatremia; E83.52 Hypercalcemia; Z90.49 Acquired absence of other specified parts of digestive tract; Z90.710 Acquired absence of both cervix and uterus; Z79.899 Other long term (current) drug therapy; Z79.51 Long term (current) use of inhaled steroids; Z88.5 Allergy status to narcotic agent; Z75.8 Other problems related to medical facilities and other health care
CPT/HCPCS: 36415; 80053; 81001; 83690; 84484; 85025; 85610; 93005; 96360; 99285; J7040; 93010; 99282

== ENCOUNTER 2024-05-12 10:14 | Emergency (ER) | payer MEDICARE, OTHER ==
[2024-05-12 13:58] VITALS: BP 111/74; PULSE 86
== END 2024-05-12 13:57 | disposition home or self-care (01) ==
LOC: MW.ED 10:14
DX: K59.00 Constipation, unspecified (principal); Z75.8 Other problems related to medical facilities and other health care; Z88.5 Allergy status to narcotic agent
CPT/HCPCS: 74018; 74018-26; 99283

== ENCOUNTER 2024-05-20 04:35 | Observation (INO) | payer MEDICARE, OTHER ==
[2024-05-20 04:51] LABS: BASOPHILS ABSOLUTE AUTO 0.07 K/uL (0.00-0.20); BASOPHILS PERCENT AUTO 0.9 % (0.0-1.0); EOSINOPHILS ABSOLUTE AUTO 0.11 K/uL (0.00-0.45); EOSINOPHILS PERCENT AUTO 1.4 % (0.0-6.0); HEMATOCRIT 39.4 % (37.0-47.0); HEMOGLOBIN 13.3 g/dL (12.0-16.0); IMMATURE GRAN ABSOLUTE AUTO 0.02 K/uL (0.00-0.05); IMMATURE GRAN PERCENT AUTO 0.3 % (0.0-0.4); LYMPHOCYTES ABSOLUTE AUTO 2.44 K/uL (1.00-4.80); LYMPHOCYTES PERCENT AUTO 30.9 % (24.0-44.0); MEAN CORPUSCULAR HGB CONC 33.8 g/dL (32.0-36.0); MEAN CORPUSCULAR VOLUME 100.8 fL (83.0-99.0); MEAN PLATELET VOLUME 9.5 fL (9.4-12.3); MONOCYTES ABSOLUTE AUTO 0.87 K/uL (0.00-0.80); NEUTROPHILS ABSOLUTE AUTO 4.38 K/uL (1.80-7.70); NEUTROPHILS PERCENT AUTO 55.5 % (41.0-71.0); PLATELET COUNT,PLT 367 K/uL (150-400); RED BLOOD CELL COUNT 3.91 M/uL (4.10-5.30); WHITE BLOOD CELL COUNT,WBC 7.89 K/uL (3.9-11.3)
[2024-05-20] MEDS: Lidocaine 2% Viscous Solution 15 ML UD TOP ONE (04:53)
[2024-05-20 05:12] LABS: A/G RATIO 0.9 (0.9-1.6); ALANINE AMINOTRANSFERASE,ALT 27 IU/L (14-63); ALBUMIN 3.6 g/dL (3.4-5.0); ALKALINE PHOSPHATASE 117 U/L (46-116); ASPARTATE AMNIOTRANSFERASE,AST 32 IU/L (15-37); BILIRUBIN TOTAL 0.5 mg/dL (0.2-1.0); BLOOD UREA NITROGEN,BUN 15 mg/dL (7.0-18.0); CALCIUM 8.6 mg/dL (8.5-10.1); CARBON DIOXIDE,CO2 29.8 mmol/L (21.0-32.0); CHLORIDE,CL 99 mmol/L (98-107); GLUCOSE RANDOM 103 mg/dL (74-106); POTASSIUM,K 4.3 mmol/L (3.5-5.1); PROTEIN TOTAL,TP 7.6 g/dL (6.4-8.2); SODIUM,NA 134 mmol/L (136-145)
[2024-05-20 05:15] LABS: ESTIMATED GFR 56 mL/min (>60)
[2024-05-20] MEDS: Magnesium Citrate Solution 296 ML Bottle PO ONE (07:38)
[2024-05-20] MEDS: Sodium Chloride 0.9% 1,000 ML IV ONE (07:38)
[2024-05-20] MEDS ORDERED: Sodium Chloride 0.9% 10 ML Syringe FLUSH PRN (08:49)
[2024-05-20] MEDS ORDERED: Sodium Chloride 0.9% 2.5 ML Syringe FLUSH PRN (08:49)
[2024-05-20] MEDS: Polyethylene Glycol 3350 Powder 17 GM Packet PO SCH ×2 (10:22→10:53)
[2024-05-20] MEDS ORDERED: Albuterol/Ipratropium 3.0-0.5 MG/3 ML Neb Soln INH PRN (14:18)
[2024-05-20] MEDS ORDERED: LORazepam 0.5 MG Tab PO PRN (14:18)
[2024-05-20] MEDS ORDERED: Albuterol 8 GM Inhaler INH PRN (14:18)
[2024-05-20] MEDS: Sennosides/Docusate Sodium 50-8.6 MG Tab PO SCH (21:01)
[2024-05-20] MEDS: Formoterol/Mometasone 200-5 MCG 8.8 GM Inhaler INH SCH (22:07)
[2024-05-21] MEDS: Acetaminophen 325 MG Tab PO PRN (05:35)
[2024-05-21 06:26] LABS: BASOPHILS ABSOLUTE AUTO 0.09 K/uL (0.00-0.20); BASOPHILS PERCENT AUTO 1.1 % (0.0-1.0); EOSINOPHILS ABSOLUTE AUTO 0.14 K/uL (0.00-0.45); EOSINOPHILS PERCENT AUTO 1.8 % (0.0-6.0); HEMATOCRIT 38.1 % (37.0-47.0); HEMOGLOBIN 12.6 g/dL (12.0-16.0); IMMATURE GRAN ABSOLUTE AUTO 0.02 K/uL (0.00-0.05); IMMATURE GRAN PERCENT AUTO 0.3 % (0.0-0.4); LYMPHOCYTES ABSOLUTE AUTO 2.64 K/uL (1.00-4.80); LYMPHOCYTES PERCENT AUTO 33.7 % (24.0-44.0); MEAN CORPUSCULAR HEMOGLOBIN 33.4 pg (28.0-32.0); MEAN CORPUSCULAR HGB CONC 33.1 g/dL (32.0-36.0); MEAN CORPUSCULAR VOLUME 101.1 fL (83.0-99.0); MEAN PLATELET VOLUME 10.1 fL (9.4-12.3); MONOCYTES ABSOLUTE AUTO 0.79 K/uL (0.00-0.80); MONOCYTES PERCENT AUTO 10.1 % (0.0-8.0); NEUTROPHILS ABSOLUTE AUTO 4.16 K/uL (1.80-7.70); PLATELET COUNT,PLT 328 K/uL (150-400); RED BLOOD CELL COUNT 3.77 M/uL (4.10-5.30); WHITE BLOOD CELL COUNT,WBC 7.84 K/uL (3.9-11.3)
[2024-05-21 06:42] LABS: CALCIUM 7.8 mg/dL (8.5-10.1); CARBON DIOXIDE,CO2 28.1 mmol/L (21.0-32.0); CREATININE 0.9 mg/dL (0.6-1.0); EST CRCL DRUG DOSING (CG) 35.11 mL/min; POTASSIUM,K 3.8 mmol/L (3.5-5.1)
[2024-05-21] MEDS: Meloxicam 7.5 MG Tab PO SCH (10:13)
[2024-05-21 12:27] VITALS: BP 138/63; PULSE 89
== END 2024-05-21 12:30 | disposition home or self-care (01) ==
LOC: MW.ED 04:35 → MW.MS 07:51
PROVIDERS: ADMIT Internal Medicine; ATTEND Internal Medicine
DX: K56.41 Fecal impaction (principal); K52.89 Other specified noninfective gastroenteritis and colitis; J61 Pneumoconiosis due to asbestos and other mineral fibers; F41.9 Anxiety disorder, unspecified; Z79.899 Other long term (current) drug therapy
CPT/HCPCS: 36415; 74176; 80048; 80053; 85025; 93005; 96360; 99285; A9270; G0378; J7030